=== PATIENT | female | born 1995 | race Caucasian/White ===

== ENCOUNTER 2018-03-04 12:25 | Observation (INO) | payer BC ==
[~2018-03-04] VITALS: Ht 154.9 cm; Wt 70.3 kg
== END 2018-03-04 13:45 | disposition home or self-care (01) ==
LOC: SPU 12:25
PROVIDERS: ADMIT Specialist; ATTEND Specialist
DX: O36.8930 Maternal care for other specified fetal problems, third trimester, not applicable or unspecified (principal); Z3A.32 32 weeks gestation of pregnancy
CPT/HCPCS: 81002; G0378

== ENCOUNTER 2019-08-05 10:03 | Emergency (ER) | payer BC, MEDICAID ==
[~2019-08-05] VITALS: Ht 154.9 cm; Wt 72.6 kg
[2019-08-05 10:15] VITALS: BP_SYST 104
[2019-08-05 11:31] LABS: BASOPHILS % (AUTO) 0.4 % (0.0-2.0); EOSINOPHILS % (AUTO) 0.3 % (0.0-4.0); HEMATOCRIT 34.6 % (36-48); HEMOGLOBIN 11.9 g/dL (12.0-16.0); LYMPHOCYTES # (AUTO) 1.6 K/uL (1.0-5.5); LYMPHOCYTES % (AUTO) 24.6 % (20.5-51.5); MEAN CORPUSCULAR HEMOGLOBIN 32 pg (27-31); MEAN CORPUSCULAR HGB CONC 35 % (32-36); MEAN CORPUSCULAR VOLUME 92 fL (79.0-98.0); MONOCYTES # (AUTO) 0.4 K/uL (0.0-1.0); NEUTROPHILS # (AUTO) 4.5 K/uL (1.8-7.7); NEUTROPHILS % (AUTO) 68.7 % (40.0-70.0); PLATELET COUNT (AUTO) 289 K/uL (130-430); RED BLOOD CELL COUNT(AUTO) 3.77 MIL/uL (4.2-6.2); RED CELL DISTRIBUTION WIDTH 13.1 % (9.0-15.0); WHITE BLOOD COUNT (AUTO) 6.6 K/uL (4.8-10.8)
[2019-08-05 11:46] LABS: PROTHROMBIN TIME 9.8 SECS (9.5-12.5)
[2019-08-05 14:20] VITALS: BP_SYST 94
== END 2019-08-05 14:18 | disposition home or self-care (01) ==
LOC: SED 10:03
DX: O26.892 Other specified pregnancy related conditions, second trimester (principal); R10.30 Lower abdominal pain, unspecified; Z3A.17 17 weeks gestation of pregnancy
CPT/HCPCS: 36415; 76815; 81002; 81025; 84702-TC; 85025; 85610-TC; 85730-TC; 86900; 86901; 99284